=== PATIENT | male | born 1950 | race Caucasian/White ===

== ENCOUNTER → 2016-04-20 | Outpatient (CLI) | payer OTHER ==
--- NOTE | 2016-04-20 12:54 | XR ---
EXAMINATION TYPE: XR knee complete RT DATE OF EXAM: 04/20/2016 12:37 PM CLINICAL HISTORY: pain TECHNIQUE: Frontal, lateral and oblique images of the right foot are obtained. COMPARISON: None. FINDINGS: There is no acute fracture/dislocation evident. The joint spaces appear within normal olmos its. The overlying soft tissue appears unremarkable. There is a linear radiopaque density overlying the tibial plateau which may reflect foreign body. This appears to extend into the bone. IMPRESSION: There is no acute fracture or dislocation. Correlate clinically for foreign body. ICD 10 NO FRACTURE, INITIAL EVALUATION
== END | disposition home or self-care (01) ==
LOC: RADXRMAIN 12:18
PROVIDERS: ATTEND Internal Medicine
DX: M25.561 Pain in right knee (principal)

== ENCOUNTER → 2017-01-17 | Outpatient (CLI) | payer OTHER ==
--- NOTE | 2017-01-17 11:25 | XR ---
EXAMINATION TYPE: XR chest 2V DATE OF EXAM: 01/17/2017 COMPARISON: Prior chest x-ray January 06, 2015. HISTORY: Sneezing and productive cough TECHNIQUE: Frontal and lateral views of the chest are obtained. FINDINGS: There is no focal air space opacity, pleural effusion, or pneumothorax seen. The cardiac silhouette size is mildly enlarged currently. The osseous structures are intact. IMPRESSION: Mild cardiomegaly without suspicious acute infiltrate.
== END | disposition home or self-care (01) ==
LOC: RADXRMAIN 10:43
PROVIDERS: ATTEND Internal Medicine
DX: I51.7 Cardiomegaly (principal); R05 Cough
CPT/HCPCS: 71020

== ENCOUNTER 2017-02-20 11:36 | Emergency (ER) | payer MEDICARE, OTHER ==
--- NOTE | 2017-02-20 13:59 | XR ---
EXAMINATION TYPE: XR chest 2V DATE OF EXAM: 02/20/2017 COMPARISON: 01/17/2017 HISTORY: Coughing and right-sided chest pain TECHNIQUE: Frontal and lateral views of the chest are obtained. FINDINGS: There is no focal air space opacity, pleural effusion, or pneumothorax seen. The cardiac silhouette size is mildly enlarged. The osseous structures are intact. Mild degenerative changes of the thoracic spine are noted. IMPRESSION: No acute cardiopulmonary process.
[2017-02-20] MEDS ORDERED: methylPREDNISolone SOD SUCCI 125 MG/2 ML VIAL IV STA (14:14)
[2017-02-20] MEDS ORDERED: IPRATROPIUM-ALBUTEROL 3 ML NEB INHALATION STA (14:14)
--- NOTE | 2017-02-20 14:16 | ED ---
General Adult HPI - General Chief complaint: Upper Respiratory Infection Stated complaint: Cough/congestion Time Seen by Provider: 02/20/17 14:04 Source: patient Mode of arrival: ambulatory Limitations: no limitations - History of Present Illness Initial comments: Joseph Guzman is a 66-year-old -[place] male who presents to the ED today for evaluation of right-sided chest discomfort for 1 week duration. Patient reports that he has had a cold for approximately 6 months but over the past week he has been experiencing worsening cough and discomfort in his right chest. He states he can feel that he is developing a cold. Patient is unable to describe the sensation in any other way. He states that he can feel cold in his chest. He does state minor right-sided chest pain for 1 week duration. He denies any left-sided chest pain. He denies any exertional chest pain, dyspnea lightheadedness or diaphoresis. Patient reports this doesn't feel like his heart attack at all. He states that he talk to his niece who believes he might have walking pneumonia and advised him to come to the emergency department. - Related Data Home Medications Medication Instructions Recorded Confirmed Aspirin EC [Ecotrin Low Dose] 81 mg PO DAILY 02/20/17 02/20/17 Atorvastatin [Lipitor] 40 mg PO DAILY 02/20/17 02/20/17 Enalapril Maleate [Vasotec] 10 mg PO BID 02/20/17 02/20/17 Ergocalciferol (Vitamin D2) 50,000 unit PO MO 02/20/17 02/20/17 [Vitamin D2] traMADol HCL [Ultram] 50 mg PO Q8H PRN 02/20/17 02/20/17 Previous Rx's Medication Instructions Recorded Metoprolol Tartrate [Lopressor] 25 mg PO BID #60 tab 01/08/15 Nitroglycerin Sl Tabs [Nitrostat] 0.4 mg SUBLINGUAL Q5M PRN #30 tab 01/08/15 Azithromycin 250 mg PO DAILY #6 tablet 02/20/17 predniSONE 40 mg PO DAILY #10 tab 02/20/17 Allergies Allergy/AdvReac Type Severity Reaction Status Date / Time No Known Allergies Allergy Verified 02/20/17 14:56 Review of Systems ROS Statement: Those systems with pertinent positive or pertinent negative responses have been documented in the HPI. ROS Other: All systems not noted in ROS Statement are negative. Constitutional: Reports: chills. Denies: fever ENT: Denies: ear pain Respiratory: Reports: cough, wheezes. Denies: dyspnea Cardiovascular: Denies: chest pain, palpitations, dyspnea on exertion, orthopnea , edema, syncope Endocrine: Denies: fatigue Gastrointestinal: Denies: abdominal pain, nausea, vomiting Genitourinary: Denies: dysuria Musculoskeletal: Reports: back pain (his back feels warm when he sits in his chair) Skin: Denies: rash, lesions Neurological: Denies: headache Psychiatric: Denies: anxiety Hematological/Lymphatic: Denies: easy bleeding, easy bruising Past Medical History Past Medical History: Myocardial Infarction ([place]) Additional Past Medical History / Comment(s): 01/06/15 Pt presented to [facility] ER with chest pain x 48 hrs. He was determined a STEMI. 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 Pt states he is healthy-he takes no medication. He states he does not go to the doctor. History of Any Multi-Drug Resistant Organisms: None Reported Past Surgical History: Heart Catheterization With Stent Additional Past Surgical History / Comment(s): 01/06/15 PTCA with stent to mid distal RCA. Past Anesthesia/Blood Transfusion Reactions: Unable to Obtain Additional Past Anesthesia/Blood Transfusion Reaction / Comment(s): Pt states he has never had surgery. Date of Last Stent Placement:: 01/06/15 Past Psychological History: No Psychological Hx Reported Smoking Status: Former smoker Past Alcohol Use History: Occasional Past Drug Use History: Marijuana - Past Family History Father Family Medical History: Vascular Disorder Additional Family Medical History / Comment(s): Father in his 80s Mother Family Medical History: COPD Additional Family Medical History / Comment(s): Mother in her 80's General Exam Limitations: no limitations General appearance: alert, in no apparent distress Head exam: Present: atraumatic, normocephalic Eye exam: Present: normal appearance, PERRL ENT exam: Present: normal exam, other (very poor dentention ) Neck exam: Present: normal inspection Respiratory exam: Present: wheezes Cardiovascular Exam: Present: normal rhythm, bradycardia GI/Abdominal exam: Present: soft. Absent: distended Rectal exam: Present: deferred Extremities exam: Present: normal inspection, full ROM. Absent: pedal edema Back exam: Present: normal inspection. Absent: CVA tenderness (R), CVA tenderness (L), muscle spasm, paraspinal tenderness, vertebral tenderness, rash noted Neurological exam: Present: alert, oriented X3 Psychiatric exam: Present: normal affect, normal mood Skin exam: Present: warm, dry Course Vital Signs 02/20/17 02/20/17 02/20/17 11:49 13:46 14:35 Temperature 97.4 F L 97.7 F Pulse Rate 55 L 58 L 60 Respiratory 18 18 Rate Blood Pressure 153/103 174/90 O2 Sat by Pulse 99 97 Oximetry 02/20/17 02/20/17 14:45 15:19 Temperature Pulse Rate 60 78 Respiratory 20 Rate Blood Pressure 143/55 O2 Sat by Pulse 95 Oximetry Medical Decision Making - Medical Decision Making Patient was seen and evaluated, history is obtained from the patient and review of medical records VItal signs reviewed EKG - sinus bradycardia with a rate of 48, normal intervals, no acute ST elevations or depressions. Chest x-ray with no acute findings Labs ordered Labs unremarkable Patient feeling better after breathing treatment All labs, chest x-ray and EKG results were discussed with patient. At this time I'll discharge the patient with the diagnosis bronchitis, by mouth prednisone and azithromycin. All questions pertaining to care were answered to the best of my ability and the patient was discharged home in stable condition. She was given return instructions should he develop any worsening, new chest pain, worsening shortness of breath or any new or concerning symptoms. - Lab Data Result diagrams: 02/20/17 14:29 02/20/17 14:29 Lab Results 02/20/17 02/20/17 02/20/17 Range/Units 14:29 14:29 14:29 WBC 7.0 (3.8-10.6) k/uL RBC 4.90 (4.30-5.90) m/uL Hgb 15.3 (13.0-17.5) gm/dL Hct 48.6 (39.0-53.0) % MCV 99.3 (80.0-100.0) fL MCH 31.3 (25.0-35.0) pg MCHC 31.5 (31.0-37.0) g/dL RDW 14.3 (11.5-15.5) % Plt Count 264 (150-450) k/uL Neutrophils % 60 % Lymphocytes % 32 % Monocytes % 4 % Eosinophils % 2 % Basophils % 1 % Neutrophils # 4.2 (1.3-7.7) k/uL Lymphocytes # 2.2 (1.0-4.8) k/uL Monocytes # 0.3 (0-1.0) k/uL Eosinophils # 0.1 (0-0.7) k/uL Basophils # 0.0 (0-0.2) k/uL PT 10.4 (9.0-12.0) sec INR 1.1 (<1.2) APTT 24.2 (22.0-30.0) sec Sodium 142 (137-145) mmol/L Potassium 4.5 (3.5-5.1) mmol/L Chloride 103 (98-107) mmol/L Carbon Dioxide 27 (22-30) mmol/L Anion Gap 12 mmol/L BUN 12 (9-20) mg/dL Creatinine 0.88 (0.66-1.25) mg/dL Est GFR (MDRD) Af Amer >60 (>60 ml/min/1.73 sqM) Est GFR (MDRD) Non-Af >60 (>60 ml/min/1.73 sqM) Glucose 105 H (74-99) mg/dL Calcium 10.2 (8.4-10.2) mg/dL Troponin I (0.000-0.034) ng/mL 02/20/17 Range/Units 14:29 WBC (3.8-10.6) k/uL RBC (4.30-5.90) m/uL Hgb (13.0-17.5) gm/dL Hct (39.0-53.0) % MCV (80.0-100.0) fL MCH (25.0-35.0) pg MCHC (31.0-37.0) g/dL RDW (11.5-15.5) % Plt Count (150-450) k/uL Neutrophils % % Lymphocytes % % Monocytes % % Eosinophils % % Basophils % % Neutrophils # (1.3-7.7) k/uL Lymphocytes # (1.0-4.8) k/uL Monocytes # (0-1.0) k/uL Eosinophils # (0-0.7) k/uL Basophils # (0-0.2) k/uL PT (9.0-12.0) sec INR (<1.2) APTT (22.0-30.0) sec Sodium (137-145) mmol/L Potassium (3.5-5.1) mmol/L Chloride (98-107) mmol/L Carbon Dioxide (22-30) mmol/L Anion Gap mmol/L BUN (9-20) mg/dL Creatinine (0.66-1.25) mg/dL Est GFR (MDRD) Af Amer (>60 ml/min/1.73 sqM) Est GFR (MDRD) Non-Af (>60 ml/min/1.73 sqM) Glucose (74-99) mg/dL Calcium (8.4-10.2) mg/dL Troponin I <0.012 (0.000-0.034) ng/mL Disposition Clinical Impression: Common cold, Bronchitis Disposition: HOME SELF-CARE Condition: Good Instructions: Upper Respiratory Infection (ED) Prescriptions: Azithromycin 250 mg PO DAILY #6 tablet predniSONE 40 mg PO DAILY #10 tab Referrals: Madelaine Santana MD [Primary Care Provider] - 1-2 days Time of Disposition: 15:42
[2017-02-20 14:42] LABS: Basophils % (A) 1 %; Eosinophils # (A) 0.1 k/uL (0-0.7); Eosinophils % (A) 2 %; HCT 48.6 % (39.0-53.0); HGB 15.3 gm/dL (13.0-17.5); Lymphocytes # (A) 2.2 k/uL (1.0-4.8); Lymphocytes % (A) 32 %; MCH 31.3 pg (25.0-35.0); MCHC 31.5 g/dL (31.0-37.0); MCV 99.3 fL (80.0-100.0); Mean Platelet Volume 8.2; Monocytes # (A) 0.3 k/uL (0-1.0); Monocytes % (A) 4 %; Neutrophils # (A) 4.2 k/uL (1.3-7.7); Neutrophils % (A) 60 %; Platelet Count 264 k/uL (150-450); RDW 14.3 % (11.5-15.5)
[2017-02-20 14:52] LABS: Anion Gap 12 mmol/L; Blood Urea Nitrogen 12 mg/dL (9-20); Calcium 10.2 mg/dL (8.4-10.2); Carbon Dioxide 27 mmol/L (22-30); Chloride 103 mmol/L (98-107); Glucose 105 mg/dL (74-99); Potassium 4.5 mmol/L (3.5-5.1); Sodium 142 mmol/L (137-145)
[2017-02-20 14:58] LABS: INR 1.1 (<1.2); Partial Thromboplastin Time 24.2 sec (22.0-30.0); Prothrombin Time 10.4 sec (9.0-12.0)
[2017-02-21 23:03] VITALS: BP 143/55; PULSE 78; RESP 20; TEMP 97.7
== END 2017-02-20 15:51 | disposition home or self-care (01) ==
LOC: EC 11:36
DX: J00 Acute nasopharyngitis [common cold] (principal); J40 Bronchitis, not specified as acute or chronic; R00.1 Bradycardia, unspecified; Z87.891 Personal history of nicotine dependence; Z79.82 Long term (current) use of aspirin; Z79.899 Other long term (current) drug therapy
CPT/HCPCS: 99284; 96374; 36415; 94640; 93005; 80048; 84484; 85025; 85610; 85730; 71046; J2930

== ENCOUNTER → 2017-04-25 | Outpatient (CLI) | payer MEDICARE, OTHER ==
--- NOTE | 2017-04-25 17:56 | US ---
EXAMINATION TYPE: US kidneys/renal and bladder DATE OF EXAM: 04/25/2017 COMPARISON: NONE CLINICAL HISTORY: R10.9 Jorge Flank Pain, M54.5 Low Back Pain. Pt states flank pain EXAM MEASUREMENTS: Right Kidney: 11.0 x 5.2 x 6.1 cm Left Kidney: 10.3 x 5.8 x 5.2 cm Right Kidney: Cyst with calcification= 1.8 x 1.1 x 1.3 cm/ calc= 0.5 cm Left Kidney: Difficult to visualize, visualized portions appeared wnl Bladder: wnl Bilateral Jets seen: Yes Caliectasis suspected in the right kidney midpole, there is a 5 mm echogenic focus which may represen t calcification, there is shadowing within this calyx. Question some minimal caliectasis of the lower pole of the right kidney. No masses are identified. The urinary bladder is anechoic. Bilateral ur eteral jets are seen. Cortical medullary differentiation is maintained. IMPRESSION: Suspect some local caliectasis, possible associated calcification as described within the right kidne y. CT may be of benefit.
== END | disposition home or self-care (01) ==
LOC: RADUSWWP 15:56
PROVIDERS: ATTEND Internal Medicine
DX: R10.9 Unspecified abdominal pain (principal); M54.5 Low back pain
CPT/HCPCS: 76770

== ENCOUNTER → 2019-03-06 | Outpatient (CLI) | payer MEDICARE ==
--- NOTE | 2019-03-06 22:58 | MR ---
EXAMINATION TYPE: MR lumbar spine wo con DATE OF EXAM: 03/06/2019 COMPARISON: NONE HISTORY: LBP, BLE radic TECHNIQUE: T1 and T2 axial and sagittal images of the lumbar spine are submitted. FINDINGS: There is no abnormal signal seen within the visualized spinal cord or paraspinal soft tissu es. There is straightening of the lumbar spine and loss of the normal lordosis. Multilevel moderate t o severe degenerative disc disease. At T12-L1 there is a left paracentral small disc herniation. No spinal cord contact. There is nerve r oot displacement within the thecal sac of the cauda equina. Neural foramina remain patent. At L1-2 there is hypertrophic change of the facets and ligamentum flavum. Tiny 2 mm synovial cyst lef t facet joint not excluded. No focal herniation. Neural foramina are patent. No Canal stenosis. At L2-3 there is degenerative disc disease with diffuse disc bulging, facet arthropathy and ligamentu m flavum hypertrophy. There is mild bilateral foraminal encroachment and mild effacement of thecal sa c with mild canal stenosis. At L3-4 there is degenerative disc disease with broad-based disc bulging and hypertrophy of the facet joints and ligamentum flavum. Mild bilateral foraminal encroachment and mild canal stenosis. At L4-5 there is degenerative disc disease with diffuse disc bulging and hypertrophy of the ligamentu m flavum and facet joints. Discogenic marrow changes are seen and there is mild bilateral foraminal e ncroachment and mild canal stenosis. At L5-S1 there is severe degenerative disc disease with facet arthropathy and ligamentum flavum hyper trophy. Mild to moderate bilateral foraminal encroachment and borderline to mild canal stenosis. IMPRESSION: 1. Small focal left paracentral disc herniation T12-L1. No spinal cord contact although there is thec al sac impression and mass effect upon the nerve roots of the cauda equina. 2. Multilevel degenerative disc disease, facet arthropathy and disc bulging resulting in multilevel c anal stenosis and foraminal encroachment as discussed above.
== END | disposition home or self-care (01) ==
LOC: RADMRIMAIN 15:29
PROVIDERS: ATTEND Internal Medicine
DX: M48.061 Spinal stenosis, lumbar region without neurogenic claudication (principal); M51.36 Other intervertebral disc degeneration, lumbar region; M51.86 Other intervertebral disc disorders, lumbar region; M46.96 Unspecified inflammatory spondylopathy, lumbar region
CPT/HCPCS: 72148

== ENCOUNTER → 2019-10-13 | Outpatient (CLI) | payer MEDICARE ==
--- NOTE | 2019-10-13 14:47 | US ---
EXAMINATION TYPE: US scrotum with doppler. TECHNIQUE: Grayscale and color Doppler Duplex imaging performed of the scrotum. DATE OF EXAM: 10/13/2019 COMPARISON: NONE CLINICAL HISTORY: 69-year-old male N50.819 Testicular pain, unspecified Swelling. Pt states tendern ess and some swelling to right testicle FINDINGS: EXAM MEASUREMENTS: TESTICLES: Right Testicle: 4.7 x 2.0 x 2.8 cm Left Testicle: 4.1 x 1.9 x 2.5 cm EPIDIDYMIS HEAD: Right Epididymis: 1.1 cm Left Epididymis: 1.0 cm Doppler performed to assess for testicular vascularity; good bilateral color flow and waveforms are s een. There is no evidence of testicular torsion. Presence of hydroceles: Small amount of fluid left scrotum Presence of varicoceles: Left side Right testicle heterogeneous with hypervascularity when compared to left Small right epi body cyst= 0.5 cm IMPRESSION: 1. Heterogeneous and hyperemic right testicle. Differential considerations include orchitis and hyper emia from torsion detorsion phenomenon. Clinically correlate. No current evidence for testicular tors ion. 2. Small left hydrocele and varicocele.
== END | disposition home or self-care (01) ==
LOC: RADUSWWP 10:25
PROVIDERS: ATTEND Surgery
DX: I86.1 Scrotal varices (principal); N43.3 Hydrocele, unspecified
CPT/HCPCS: 76870; 93975

== ENCOUNTER → 2023-08-01 | Outpatient (CLI) | payer MEDICARE ==
--- NOTE | 2023-08-01 09:29 | XR ---
EXAMINATION TYPE: XR chest 2V DATE OF EXAM: 08/01/2023 COMPARISON: 02/20/2017 HISTORY: Shortness of breath TECHNIQUE: Frontal and lateral views of the chest are obtained. FINDINGS: Scattered senescent parenchymal changes noted. Hyperinflation compatible with COPD. No evidence for infiltrate. No evidence for atelectasis. Heart size is stable. Mediastinal structures are stable and grossly unremarkable. No evidence for hilar prominence. Degenerative changes dorsal spine. IMPRESSION: 1. No evidence for acute pulmonary disease.
== END | disposition home or self-care (01) ==
LOC: RADXRMAIN 09:07
PROVIDERS: ATTEND Internal Medicine
DX: R05.9 Cough, unspecified (principal); R06.02 Shortness of breath
CPT/HCPCS: 71046

== ENCOUNTER → 2023-11-30 | Outpatient (CLI) | payer MEDICARE ==
--- NOTE | 2023-11-30 10:38 | US ---
EXAMINATION TYPE: US kidneys/renal and bladder DATE OF EXAM: 11/30/2023 COMPARISON: US CLINICAL INDICATION: Male, 73 years old with history of R10.9 ABD PAIN; Abnormal labs TECHNIQUE: Grayscale and color Doppler imaging of the bilateral kidneys and urinary bladder: FINDINGS: EXAM MEASUREMENTS: Right Kidney: 11.4 x 6.0 x 5.1 cm Left Kidney: 11.2 x 6.0 x 5.4 cm Right Kidney: No evidence of hydro, multiple small cystic lesions mid/lateral, largest= 1.3 x 1.1 cm, possible small calculi mid= 0.4 cm Left Kidney: No evidence of hydro Bladder: Possible multiple small bladder wall diverticula Bilateral Jets seen: Only right jet visualized There is no evidence for hydronephrosis at this point in time. No nephrolithiasis is seen. No farhad s are identified. The urinary bladder is anechoic. IMPRESSION: 1. Nonobstructing right-sided nephrolithiasis. 2. Multiple small cystic lesions right kidney. 3. Urinary bladder diverticula. [facility], , 11/30/2023 10:35 AM
== END | disposition home or self-care (01) ==
LOC: RADUSWWP 09:35
PROVIDERS: ATTEND Internal Medicine
CPT/HCPCS: 76770